=== PATIENT | female | born 2005 | race Caucasian/White ===

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

== ENCOUNTER 2025-09-02 20:20 | Emergency (ER) | payer SELFPAY ==
[2025-09-02 20:21] VITALS: BP 142/105; PULSE 97; RESP 16; TEMP 36.8; O2SAT 100; BMI 19.5
--- NOTE | 2025-09-02 20:44 | CT_ITS ---
PROCEDURE: ABDOMEN/PEL W ORAL CONT ONLY 09/02/2025 REASON FOR EXAM: RLQ PAIN TECHNIQUE: Procedure Code: [id number] Modality: CT Procedure: ABDOMEN/PEL W ORAL CONT ONLY Noncontrast technique limits evaluation of the abdominal and pelvic viscera. Coronal and Sagittal reconstruction series were provided. Enteric contrast was utilized. One or more dose reduction techniques were used (e.g., Automated exposure control, adjustment of the mA and/or kV according to patient size, use of iterative reconstruction technique). RADIATION DOSE SUMMARY: CTDlvol: 6 mGy DLP: 281 mGycm FINDINGS: The lung bases are clear. The peripheral soft tissues are unremarkable. Normal caliber abdominal aorta. Prominent right lower quadrant mesenteric lymph nodes. The liver, gallbladder, pancreas, spleen, and adrenals are unremarkable. No renal calculi. No hydroureteronephrosis. The urinary bladder is unremarkable. Anteverted uterus. Normal caliber large and small bowel. Normal caliber appendix. CT/Abdomen/Pel W ORAL Cont Only IMPRESSION: Normal appendix. Prominent right lower quadrant mesenteric lymph nodes, consider mesenteric raymond itis. Reading Location: [address]
[2025-09-02 21:06] LABS: Mucous, Urine 0 SEEN /hpf (<or=2+); Red Blood Cells-Urine 0 SEEN /hpf (0-5)
[2025-09-02 21:08] LABS: Color, Urine Yellow (Yellow); Glucose, Dipstick Normal (Normal); Ketone-Dipstick 50 mg/dl (Negative); Leukocyte Esterase-Dipstick 25 /ul (Negative); Nitrite-Dipstick Negative (Negative); Occult Blood-Urine Negative /ul (Negative); Protein-Dipstick Negative (Negative); Specific Gravity, Urine 1.010 (1.002-1.030); Urine Bilirubin Dipstick Negative (Negative)
[2025-09-02 21:09] LABS: Internal QC Validated? YES +Cl - CLEAR BKGD; Pregnancy, Urine Negative Negative
--- NOTE | 2025-09-02 21:17 | CM.ED ---
Social Work Date of referral: 09/02/25 Reason for referral: No Primary Care Physician (PCP) on file Referred by: Social Work Identification Patient provided consent to licensed social worker visit. Patient stated she used to be established with a PCP here, but then moved to [place] and hasn't gotten re-established. City Planner provided education and offered a written handout for the [facility] which patient accepted and expressed appreciation for. Tami Burns, ELECTROMEDICAL SERVICE ENGINEER, PLUMBING WAREHOUSE HELPER
[2025-09-02 21:21] LABS: Squamous Epithelial Cells - UA 0-5 SEEN /hpf (5-10)
--- OUTSIDE RECORDS SUMMARY | 2025-09-02 21:32 | XMS RPT_ITS | CCD ---
Author Organization [facility] CliniSyct Care Team Providers Care Senior Attorney Name Role Phone WilsonNachoe Primary Care Unavailable Best Chaidez Attending Unavailable Medications Current Medications Medication Drug Class(es) Dates Sig (Normalized) Sig (Original) ondansetron 4 mg disintegrating oral tablet (1 source) Serotonin-3 Receptor Antagonist Start: 11-03-2022 take 4 mg by mouth every eight hours as needed Ondansetron Active 4 MG PO EVERY 8 HOURS NEEDED November 03, 2022 12:00am Problems Problem Classification Problem Date Documented Da te Episodic/Chronic Intracranial injury (1 source) Concussion injury of body structure; Translations: [Concussion] 11-03-2022 Episodic Other injuries and conditions due to external causes (1 source) Closed injury of head; Translations: [Unspecified injury of head, initial encounter] 11-03-2022 Episodic Other injuries and conditions due to external causes (1 source) Unspecified injury of head, initial encounter; Translations: [Unspecified injury of head, initial encounter] Onset: 11-14-2022 Episodic Results Test Name Value Interpretation Reference Range Facil ity Brain/Head without Contrasto n 11-03-2022 Brain/Head without Contrast [facility] [address] [place] [id number] Brain/Head without Contrast MR#: [id number] Acct: [id number] Name: CHERIE LOPEZ Mariana Rep #: [id number] : 2005 F 17 From: Walter odom MD PCP: NOT,DEFINED Status: PRE ER Study: Brain/Head without Contrast Date of Exam: 03/20 Exam# [id number] Ordering Dr: Best Chaidez DO STUDY: CT BRAIN WITHOUT CONTRAST REASON FOR EXAM: Female, 17 years old. Fall, blurry vision RADIATION DOSAGE (If Supplied By Facility): CTDIvol = ( 44.99 ) mGy, DLP = ( 694.87 ) mGycm TECHNIQUE: Transaxial CT imaging of the brain was performed without administration of intravenous contrast material. Individualized dose optimization techniques were used for this CT. COMPARISON: No relevant priors. FINDINGS: Normal soft tissue structures. Normal calvarium. Normal size ventricles and extra-axial spaces for the patient''s age. Normal white matter tracts of the cerebral hemispheres. Normal basal ganglia and thalami. Normal brainstem. Normal cerebellum. There is no intracranial hemorrhage. There are no findings of an acute ischemic infarction. Normal visualized paranasal sinuses. CT/Brain/Head without Contrast IMPRESSION: Normal unenhanced CT scan of the brain. Electronically Signed: Walter Shore MD at 12:28 EST Reading Location ID and State: [address] [place] [address] , Service support , CC: DEFINED NOT; Dr. Best Chaidez DO Printing Mechanist: Signed Normal [facility] Emergency Department Summary on 11-03-2022 Emergency Department Summary [facility] Medical Records Department [address] [place] [id number] Emergency Department Summary 11/03/22 MR#: [id number] Acct: [id number] Name: CHERIE LOPEZ Rep #: [id number] : 2005 17 From: Best Fitzgerald PCP: Dr. Cheryl Wilson MD Status:DEP ER Location: ED HPI History of Present Illness Chief Complaint: Head Injury Informant: patient and parent Narrative Narrative: Presents here with mother for evaluation after being referred by quenching car operator. Mechanical fall at work 2 days ago hitting the back of her head on a metal shelf and a 5 pound box hitting her face. She did not lose consciousness. No anticoagulation medicines. She is seen at [facility] in hospital reported discussed concussions with head injury precautions. Yesterday had 1 emesis. Today saw her quenching car operator felt a soft bump on his scalp right side was referred to the ED. No history of concussions. No current nausea. Prior similar symptoms: No PFSH PFSH Medical History no medical history Home Medications ondansetron 4 mg disintegrating tablet 4 mg PO Q8H PRN PRN Nausea #10 tabs 11/03/22 [Rx Last Taken Unknown] Allergy/AdvReac Type Severity Reaction Status Date / Time No Known Allergies Allergy Verified 11/03/22 11:47 Surgical History no surgical history Social History Smoking Status: Never smoker ROS ROS ED Constitutional Constitutional ED: Denies chills, fever(s) or sweats Eyes Eyes: Denies change in vision ENT ENT ED: Denies dysphagia or sore throat Cardiovascular Cardiovascular: Denies chest pain, leg edema, palpitations or racing heartbeat Respiratory/Chest Respiratory/Chest: Denies cough, dyspnea or dyspnea on exertion Gastrointestinal Gastrointestinal: Denies abdominal pain, diarrhea, nausea or vomiting Genitourinary Genitourinary ED: Denies dysuria, hematuria or urinary frequency Musculoskeletal Musculoskeletal: Denies back pain, extremity pain or neck pain Integumentary Denies rash or wounds Neurologic Neurologic: Reports headache(s); Denies paresthesias or weakness EXAM Physical Exam Const Vital Signs: 11/03/22 11:45 Temperature 95.8 F L Temperature Source Temporal Pulse Rate 113 H Respiratory Rate 18 Blood Pressure 147/121 H Blood Pressure Mean 129 Pulse Ox 95 Oxygen Delivery Method Room Air Positive well nourished and well developed Constitutional Narrative: ACS 15 General Appearance ED: well developed and NAD HEENT Reports moist mucous membranes HEENT Narrative: No hemotympanums normocephalic and atraumatic Eyes PERRL, EOMs intact bilaterally and conjunctivae normal General Eye ED: Yes normal appearance of both eyes Neck no lymphadenopathy and supple General: Negative for tenderness Chest Wall Chest: Negative for tenderness Resp normal respiratory effort and normal air movement Effort and Inspection: symmetric chest movement; Negative for respiratory distress Cardio regular rhythm and no murmurs Rate: tachycardic Peripheral Pulses: pulses 2+ throughout GI normal to inspection, nondistended, normoactive bowel sounds and non-tender Palpation: Negative for guarding or rebound tenderness present Back/Spine no CVA tenderness and no thoracic nor lumbar tenderness Extremity normal to inspection General Extremety ED: Negative for edema or tenderness General Extremity: Negative for edema Neuro oriented x3, CN's II-XII intact bilaterally and no sensory deficits noted Sensorium / Orientation: awake and alert Skin no rashes or lesions noted and no wounds MDM MDM MDM Narrative Medical decision making narrative: Interventions / MDM: Differential diagnosis: Concussion, intracranial hemorrhage, scalp fracture Diagnosis considered but do not suspect: N/A My EKG interpretation: N/A Imaging independently reviewed and interpreted by myself: CT brain and cervical spine no acute process. External documents reviewed: N/A Test considered but not ordered:N/A ED course: Patient worsening symptoms since her initial head during 2 days ago vomited yesterday reported concern for soft tissue abnormality right occiput by her PCP. Trauma scan head and neck reviewed by myself read by radiology negative for any acute process. Concussion precautions discussed with the patient. Currently not nauseated. Brain rest discussed. Should use Tylenol as needed prescription for Zofran to her pharmacy to use as needed. Return precaution discussed with patient and mother. All questions were answered. Re-evaluation: stable and improved Disposition discussed with patient/family/signifi cant other: Patient and mother Case discussed with consulting clinician: N/A Radiography Diagnostic Testing: Clinical Impression(s) from I (more content not included)... Normal [facility] Spine Cervical without Contr ason 11-03-2022 Spine Cervical without Contras [facility] [address] [place] [id number] Spine Cervical without Contras MR#: [id number] Acct: [id number] Name: HCERIE LOPEZ Rep #: [id number] : 2005 F 17 From: Walter odom MD PCP: NOT,DEFINED Status: PRE ER Study: Spine Cervical without Contras Date of Exam: 0 11/03/22 Exam# [id number] Ordering Dr: Best Chaidez DO STUDY: CT CERVICAL SPINE WITHOUT CONTRAST REASON FOR EXAM: Female, 17 years old. Fall multiple, blurry vision,headache -- ed waiting room RADIATION DOSAGE (If Supplied By Facility): CTDIvol = ( 12.23 ) mGy, DLP = ( 243.64 ) mGycm TECHNIQUE: High resolution transaxial imaging was performed without contrast material. Sagittal and coronal images were reconstructed. Individualized dose optimization techniques were used for this CT. COMPARISON: None FINDINGS: Normal craniovertebral junction. Normal anterior atlantoaxial articulation. Normal odontoid process. There is reversal of the normal cervical lordosis. Normal vertebral bodies and posterior osseous elements. C2-3: Normal endplates. Normal disc height and morphology. Normal central canal and intervertebral neuroforamina. C3-4: Normal endplates. Normal disc height and morphology. Normal central canal and intervertebral neuroforamina. C4-5: Normal endplates. Normal disc height and morphology. Normal central canal and intervertebral neuroforamina. C5-6: Normal endplates. Normal disc height and morphology. Normal central canal and intervertebral neuroforamina. C6-7: Normal endplates. Normal disc height and morphology. Normal central canal and intervertebral neuroforamina. C7-T1: Normal endplates. Normal disc height and morphology. Normal central canal and intervertebral neuroforamina. Normal visualized soft tissue structures. CT/Spine Cervical without Contras IMPRESSION: There is evidence of reversal of the normal cervical lordosis most likely secondary to muscle spasm. Electronically Signed: Walter Shore MD at 12:29 EST , CC: DEFINED NOT; Dr. Best Chaidez DO Printing Mechanist: Signed Normal [facility] Vital Signs Date Time Vital Sign Value Performing Clinician Jazmín mejia 11-03-2022 11:45-0500 Body height 160.02 cm [facility] 11-03-2022 11:45-0500 Body mass index (BMI) [Percentile] Per age and sex 28.8 % [facility] 11-03-2022 11:45-0500 Body mass index (BMI) [Ratio] 19.8 kg/m2 [facility] 11-03-2022 11:45-0500 Body temperature 95.8 [degF] [facility] 11-03-2022 11:45-0500 Body weight 50.89 kg [facility] 11-03-2022 11:45-0500 Diastolic blood pressure 121 mm[Hg] [facility] 11-03-2022 11:45-0500 Heart rate 113 /min [facility] 11-03-2022 11:45-0500 Respiratory rate 18 /min [facility] 11-03-2022 11:45-0500 SaO2% (BldA) [Mass fraction] 95 % [facility] 11-03-2022 11:45-0500 Systolic blood pressure 147 mm[Hg] [facility] Encounters Encounter Date Encounter Type Care Provider Facility Start: 11-03-2022 End: 11-03-2022 [facility] Facility[facility] Start: 11-03-2022 End: 11-03-2022 Emergency department patient visit [facility] Procedures Date Procedure Procedure Detail Performing Clinician Start: 11-03-2022 CT cervical spine wi thout contrast Start: 11-03-2022 CT of head without contrast Plan of Treatment Date Care Activity Detail Author Patient Education ED Concussion [facility] Work Phone: Patient referral [facility] Work Phone: Payers Date Payer Category Payer Self-pay [id number] 2022 Unknown [id number] Unknown [employer] [id number] Unknown [facility] [id number] Unknown [id number] Social History Date Type Detail Facility Start: 11-03-2022 Tobacco smoking status NHIS Unknown if ever smoked [facility] Start: 2005 Sex Assigned At Female [facility] NEGATED: Highlighted row [facility] Mental Status Date Assessment Result Facility 11-03-2022 Cognitive function Awake;Alert;A ppropriate;Fol lows Commands [facility] Work Phone: Evaluation note Note Date & Type Note Facility Evaluation note No assessment information availa ble [facility] Work Phone: Hospital Discharge instructions Note Date & Type Note Facility Hospital Discharge instructions Additional Instructions CT brain and cervical spine negative. Use Tylenol every 6 hours as needed. Follow-up with your doctor. [facility] Work Phone: Chief Complaint and Reason for Visit Chief Complaint head inury Advance Directives No Advanced Directives Records Found Advance Directive Response Recorded Date/ Time Living Will No November 03 1:42pm Power of Cutting Tool Sharpener No November 03, 2022 1:42pm Summary Purpose Family History No Family History Records Found Additional Source Comments Care Teams (unrecognized sec tion and content) Team Status: Active Member Role Status Dates Dr. Cheryl Wilson MD Primary Care Provider Active Team Status: Inactive Member Role Status Dates Dr. Cheryl Wilson MD Primary Care Provider Active Dr. Best Chaidez DO Emergency Provider Active Goals (unrecognized section and content) Goals may be documented in a n alternate section INFORMATION SOURCE (unrecogn ized section and content) DATE CREATED AUTHOR 11/14/2022 [facility] FOR RECORDS PERTAINING TO PATIENTS WHO ARE OR HAVE BEEN ENROLLED IN A CHEMICAL DEPENDENCY/SUBSTANCEABUSE PROGRAM, SOME INFORMATION MAY BE OMITTED. This clinical summary was aggregated from multiple sources. Caution should be exercised in using it in the provision of clinical care. This summary normalizes information from multiple sources, and as a consequence, information in this document may materially change the coding, format and clinical context of patient data. In addition, data may be omitted in some cases. CLINICAL DECISIONS SHOULD BE BASED ON THE PRIMARY CLINICAL RECORDS. [facility] [employer] provides no warranty or guarantee of the accuracy or completeness of information in this document.
[2025-09-02 22:04] VITALS: BP 125/84; PULSE 64; RESP 14; O2SAT 100
--- NOTE | 2025-09-02 22:48 | EX.ED.DYSGE1 ---
HPI History of Present Illness Chief Complaint: Abd Pain Informant: patient and spouse/S.O. Narrative Narrative: Patient is a 20-year-old female who states that over the last 1 to 2 days she has had nausea without vomiting as well as a few episodes of loose stool/diarrhea and generalized lower abdominal pain. She states her significant other was recently sick as well but he had bouts of vomiting. Otherwise she denies any known sick contacts. She denies any concern for and reports she had a home test that was negative recently. She states that today the pain seems more severe in the right lower quadrant and she is concerned about her appendix and secondary to this comes in for evaluation [facility] Home Medications ?Medication ?Instructions ?Recorded ?Last Taken ?Type ondansetron 4 mg disintegrating 4 mg PO Q8H PRN PRN Nausea #10 tabs 11/03/22 Unknown Rx tablet ondansetron 4 mg disintegrating 4 mg PO TID PRN nausea and 09/02/25 Unknown Rx tablet vomiting #21 tabs oxycodone-acetaminophen 5 mg-325 1 tab PO Q6H PRN pain 3 days #12 09/02/25 Unknown Rx mg tablet (Percocet) tabs Allergy/AdvReac Type Severity Reaction Status Date / Time No Known Allergies Allergy Verified 09/02/25 20:22 Surgical History (Updated 09/02/25 @ 21:22 by Awa Ramos) History of hip surgery H/O adenoidectomy Hx of tonsillectomy Social History Smoking Status: Never smoker ROS ROS ED Constitutional Constitutional ED: Denies chills or fever(s) ENT ENT ED: Denies sore throat Cardiovascular Cardiovascular: Denies chest pain Respiratory/Chest Respiratory/Chest: Denies cough or dyspnea Gastrointestinal Gastrointestinal: Reports abdominal pain, diarrhea and nausea; Denies vomiting Genitourinary Genitourinary ED: Denies dysuria or hematuria Musculoskeletal Musculoskeletal: Denies back pain or myalgias Integumentary Denies rash Neurologic Neurologic: Denies headache(s) Psychiatric Psychiatric: Reports anxiety Hematologic/Lymphatic Hematologic/Lymphatic: Denies easy bleeding or easy bruising EXAM Physical Exam Const Vital Signs: 09/02/25 22:58 Temperature 98.3 F Pulse Rate 70 Respiratory Rate 16 Blood Pressure 120/55 L Blood Pressure Mean 76 Pulse Ox 100 Positive well nourished and well developed General Appearance ED: well developed; Negative for pallor HEENT Reports moist mucous membranes HEENT Narrative: Normocephalic atraumatic No tongue or lip swelling no oral lesions no airway edema or compromise No secondary findings in the posterior pharynx to suggest infection Eyes PERRL and EOMs intact bilaterally General Eye ED: Negative for scleral icterus Neck supple Resp normal respiratory effort and clear to auscultation bilaterally Cardio regular rate and regular rhythm Rate: other Other Details: Heart is regular rate and rhythm without murmurs rubs or gallop Radial and carotid pulses are equal and symmetric GI non-distended GI Narrative: Abdomen is soft and nondistended with hyperactive bowel sounds There is pain with palpation diffusely across the lower abdomen but it is greatest in the right lower quadrant Positive heel strike; negative psoas and obturator signs No peritoneal signs Auscultation: hyperactive bowel sounds Palpation: soft Back/Spine no CVA tenderness Extremity normal to inspection Neuro oriented x3, CN's II-XII intact bilaterally and no sensory deficits noted Sensorium / Orientation: alert Motor Exam: strength 5/5 throughout Psych Mood & Affect: anxious Skin no rashes or lesions noted and no wounds General Skin Exam: Negative for jaundice or pallor MDM MDM MDM Narrative Medical decision making narrative: Patient arrived to the ER hypertensive otherwise with stable vitals. With generalized lower abdominal pain nausea and bouts of loose stool/diarrhea patient may have a viral stomach infection such as norovirus versus rotavirus especially as her significant other was recently sick with nausea and vomiting. In order to rule out complication a urine sample be obtained as well as potential UTI/pyelonephritis or kidney stone. As patient's main concern was for appendicitis we did elect to perform a CT scan. The patient states however that she cannot do needles. Secondary to this we did not obtain any blood work and elected to perform a CT scan with oral contrast only. Urine sample was negative for it showed no blood going against kidney stone or no signs of infection going out pyelonephritis or UTI. CT scan of the abdomen pelvis oral contrast only revealed a normal appendix without signs of colitis/diverticulitis or intestinal abscess. On reevaluation the patient's blood pressure stabilized and remainder of her vitals are stable. Her pain is resolved as well. Secondary to the overall negative workup and improvement of vitals there is no need for further evaluation in the ER and she is otherwise safe for discharge History & Record Review Discussion w/independent historian: Patient and Significant other Lab Data Attestation: I reviewed the patient's lab results. Labs: Laboratory Results - last 24 hr 09/02/25 21:00 Urine Color Yellow Urine Clarity Clear Urine pH 6.0 Ur Specific [place] 1.010 Urine Protein Negative Urine Glucose (UA) Normal Urine Ketones 50 H Urine Occult Blood Negative Urine Nitrite Negative Urine Bilirubin Negative Urine Urobilinogen Normal Ur Leukocyte Esterase 25 H Urine RBC 0 SEEN Urine WBC 0-5 SEEN Ur Squamous Epith Cells 0-5 SEEN Urine Bacteria 1+ Urine Mucus 0 SEEN Urine Test Negative Radiography Diagnostic Testing: Clinical Impression(s) from Imaging Studies Abdomen CT 09/02/25 20:44 IMPRESSION: Normal appendix. Prominent right lower quadrant mesenteric lymph nodes, consider mesenteric adenitis. Reading Location: [address] Discharge Plan Triage Chief Complaint: Abd Pain ED Provider: Librado Mai Dx/Rx/DC Orders Clinical Impression: Nonspecific abdominal pain, Diarrhea, Nausea Instructions: Abdominal Pain, ED Gastroenteritis, Viral (Adult) Prescriptions: New ondansetron 4 mg tablet,disintegrating 4 mg PO TID PRN (Reason: nausea and vomiting) Qty: 21 0RF oxycodone-acetaminophen [Percocet] 5-325 mg tablet 1 tab PO Q6H PRN (Reason: pain) 3 Days Qty: 12 0RF No Action ondansetron [ondansetron] 4 mg tablet,disintegrating 4 mg PO Q8H PRN PRN (Reason: Nausea) Qty: 10 0RF Primary Care Provider: Care Physician,No Primary Referrals: Care Physician,No Primary [Primary Care Provider, Medical] Activity Restrictions/Additional Instructions: Your CT scan showed no sign of appendicitis indicating your symptoms are most likely viral in nature. Take the prescribed medication to help control symptoms and keep yourself well-hydrated. Symptoms should improve over the next 3 to 7 days. Return to the ER should you have any further concerns or worsening of symptoms Print Language: Lao Disposition Disposition: Home, Self Care Discharge Date/Time: 09/02/25 22:58
[2025-09-02 22:58] VITALS: BP 120/55; PULSE 70; RESP 16; TEMP 36.8; O2SAT 100
== END 2025-09-02 22:58 | disposition home or self-care (01) ==
PROVIDERS: Emergency Provider Emergency Medicine; Visit Provider Emergency Medicine
DX: R10.9 Unspecified abdominal pain (principal); R19.7 Diarrhea, unspecified; R11.2 Nausea with vomiting, unspecified
CPT/HCPCS: 74176; 81001; 81025; 99283